=== PATIENT | male | born 1985 | race Caucasian/White ===

== ENCOUNTER 2017-07-12 12:31 | Emergency (ER) | payer OTHER ==
[~2017-07-12] VITALS: Ht 170.2 cm; Wt 113.6 kg
[~2017-07-12 12:31] MED LIST: AMOXICILLIN 50500 MG PO; NORCO 325 MG-51 TAB PO; ULTRAM 50MG TAB50 MG PO
[2017-07-12 12:34] VITALS: BP 140/61; TEMP 98.7
[2017-07-12] MEDS ORDERED: MULTI VITAMINS1 TAB PO (12:37)
[2017-07-12 13:07] LABS: INFLUENZA A NEGATIVE; INFLUENZA B POSITIVE
[2017-07-12] MEDS ORDERED: TAMIFLU 75MG75 MG PO (13:36)
[2017-07-12 13:40] VITALS: PULSE 92
== END 2017-07-12 13:41 | disposition home or self-care (01) ==
LOC: COL.ER 12:31
PROVIDERS: Physician Assistant
DX: J10.1 Influenza due to other identified influenza virus with other respiratory manifestations (principal)

== ENCOUNTER 2018-10-21 19:57 | Emergency (ER) | payer SELFPAY ==
[~2018-10-21] VITALS: Ht 170.2 cm; Wt 105.0 kg
[~2018-10-21 19:57] MED LIST changes: +MULTI VITAMINS1 TAB PO; +TAMIFLU 75MG75 MG PO
[2018-10-21 19:59] VITALS: BP 138/71; TEMP 98.1
[2018-10-21 20:40] VITALS: PULSE 85
== END 2018-10-21 20:40 | disposition home or self-care (01) ==
LOC: COL.ER 19:57
DX: S61.231A Puncture wound without foreign body of left index finger without damage to nail, initial encounter (principal); F17.210 Nicotine dependence, cigarettes, uncomplicated; Z88.0 Allergy status to penicillin; W29.4XXA Contact with nail gun, initial encounter

== ENCOUNTER 2022-02-17 14:00 | Outpatient (RCR) | payer OTHER ==
[~2022-02-17 14:00] MED LIST changes: +AKTOB 5 ML5 ML OP
== END 2022-02-19 | disposition home or self-care (01) ==
LOC: WSOH
DX: S46.812A Strain of other muscles, fascia and tendons at shoulder and upper arm level, left arm, initial encounter (principal); S66.912A Strain of unspecified muscle, fascia and tendon at wrist and hand level, left hand, initial encounter; S93.401A Sprain of unspecified ligament of right ankle, initial encounter; Y99.0 Civilian activity done for income or pay; M19.90 Unspecified osteoarthritis, unspecified site